=== PATIENT | female | born 1995 | race Caucasian/White ===

== ENCOUNTER 2018-11-20 14:17 | Emergency (ER) | payer MEDICAID ==
[~2018-11-20] VITALS: Ht 149.9 cm; Wt 97.5 kg
[2018-11-20 14:25] VITALS: BP 116/66
[2018-11-20] MEDS ORDERED: ACETAMINOPHEN 500 MG TABLET ONE (14:47)
--- NOTE | 2018-11-20 14:53 | NUR ---
PT RESTING ON GURNEY, CALL LIGHT IN REACH. MEDICATED FOR PAIN. ALL CONCERNS ADRESSED.
[2018-11-20] MEDS ORDERED: ACETAMINOPHEN 500 MG TABLET PO ONE (15:00)
--- NOTE | 2018-11-20 15:23 | NUR ---
SW AT PT BEDSIDE
--- NOTE | 2018-11-20 15:59 | NUR ---
DIET TRAY GIVEN TO PT.
--- NOTE | 2018-11-20 16:18 | NUR ---
Patient/Caregiver given discharge instructions and they have confirmed that they understand the instructions. Patient ambulatory with steady gait. PT GIVEN TAXI VOUCHER FOR SAFE TRANSPORT HOME. PT LEFT WITH ALL PERSONAL BELONGINGS.
== END 2018-11-20 16:42 | disposition home or self-care (01) ==
LOC: ED 14:49
DX: S30.811A Abrasion of abdominal wall, initial encounter (principal); Y04.0XXA Assault by unarmed brawl or fight, initial encounter; Y93.89 Activity, other specified; Y92.009 Unspecified place in unspecified non-institutional (private) residence as the place of occurrence of the external cause; Y99.8 Other external cause status
CPT/HCPCS: 36415; 70450; 84703; 99284

== ENCOUNTER 2019-01-08 09:50 | Emergency (ER) | payer MEDICAID ==
[~2019-01-08] VITALS: Ht 149.9 cm; Wt 95.8 kg
--- NOTE | 2019-01-08 09:55 | NUR ---
NO ANSWER FROM TRIAGE
[2019-01-08] MEDS ORDERED: SODIUM CHLORIDE FLUSH 10ML SYR IVF ONE (10:30)
[2019-01-08] MEDS ORDERED: ONDANSETRON 2MG/ML, 2ML IVPush ONE (10:30)
[2019-01-08] MEDS ORDERED: MORPHINE SULFATE 4 MG/ML, 1ML IVPush PRN (10:30)
[2019-01-08 10:34] LABS: BASOPHILS # (AUTO) 0.03 x10^3/uL (0-0.1); BASOPHILS % (AUTO) 0 % (0-1); EOSINOPHILS # (AUTO) 0.07 x10^3/uL (0-0.4); EOSINOPHILS % (AUTO) 1 % (1-7); LYMPHOCYTES # (AUTO) 1.35 x10^3/uL (1-3.4); LYMPHOCYTES % (AUTO) 18 % (22-44); MD NO; MEAN CORPUSCULAR HEMOGLOBIN 30.2 pg (27.0-34.8); MEAN CORPUSCULAR HGB CONC 33.7 g/dL (32.4-35.8); MEAN CORPUSCULAR VOLUME 89.6 fL (80-100); MEAN PLATELET VOLUME 9.1 fL (7.4-10.4); MONOCYTES # (AUTO) 0.44 x10^3/uL (0.2-0.8); MONOCYTES % (AUTO) 6 % (2-9); NEUTROPHILS # (AUTO) 5.81 x10^3/uL (1.8-6.8); NEUTROPHILS % (AUTO) 75 % (42-75); PLATELET COUNT 216 x10^3/uL (130-400); RED BLOOD COUNT 4.72 x10^6/uL (3.82-5.3); RED CELL DISTRIBUTION WIDTH 13.3 % (9.6-15.2)
[2019-01-08 10:46] LABS: ALANINE AMINOTRANSFERASE 108 U/L (12-78); ALBUMIN 3.6 g/dL (3.4-5.0); ANION GAP 8 mmol/L (5-15); CALCIUM 8.5 mg/dL (8.5-10.1); CHLORIDE 108 mmol/L (98-107); CREATININE 0.72 mg/dL (0.55-1.02)
[2019-01-08 10:48] LABS: ALKALINE PHOSPHATASE 80 U/L (45-117); TOTAL PROTEIN 7.2 g/dL (6.4-8.2)
[2019-01-08] MEDS ORDERED: MORPHINE SULFATE 4 MG/ML, 1ML ONE (10:52)
[2019-01-08] MEDS ORDERED: ONDANSETRON 2MG/ML, 2ML ONE (10:52)
--- NOTE | 2019-01-08 11:06 | NUR ---
CT PENDING HCG
[2019-01-08 11:07] LABS: MICROSCOPIC AUTO
[2019-01-08 11:09] LABS: CULTURE INDICATED? YES
[2019-01-08] MEDS ORDERED: OMNIPAQUE 350 MG/ML, 100ML BOTTLE ONE (11:47)
[2019-01-08 13:25] VITALS: BP 98/47
== END 2019-01-08 14:02 | disposition home or self-care (01) ==
LOC: ED 10:53
DX: N83.292 Other ovarian cyst, left side (principal); F17.200 Nicotine dependence, unspecified, uncomplicated; J45.909 Unspecified asthma, uncomplicated
CPT/HCPCS: 36415; 74177; 80053; 81001; 81025; 83690; 85025; 87086; 96374; 96375; 99284; J2405; Q9967

== ENCOUNTER 2019-01-27 20:06 | Emergency (ER) | payer MEDICAID ==
[~2019-01-27] VITALS: Ht 152.4 cm; Wt 97.2 kg
[2019-01-27 20:08] VITALS: BP 112/67
--- NOTE | 2019-01-27 21:32 | NUR ---
pt given dc instructions and script, educated regarding rx for flonase and tessalon perles. pt a&o, resps even and unlabored, nadn. pt amb to dc desk with steady gait, accompanied by friend.
== END 2019-01-27 21:25 | disposition home or self-care (01) ==
LOC: ED 20:58
DX: J02.9 Acute pharyngitis, unspecified (principal); F17.210 Nicotine dependence, cigarettes, uncomplicated; J45.909 Unspecified asthma, uncomplicated
CPT/HCPCS: 87081; 87880; 99283

== ENCOUNTER 2019-04-29 10:23 | Emergency (ER) | payer MEDICAID ==
[~2019-04-29] VITALS: Ht 152.4 cm; Wt 94.8 kg
[2019-04-29 12:52] VITALS: BP 113/63
== END 2019-04-29 12:56 | disposition home or self-care (01) ==
LOC: ED 12:50
DX: N83.291 Other ovarian cyst, right side (principal); N93.8 Other specified abnormal uterine and vaginal bleeding; J45.909 Unspecified asthma, uncomplicated
CPT/HCPCS: 36415; 76830; 80053; 81001; 84703; 85025; 99284

== ENCOUNTER 2019-09-06 12:17 | Emergency (ER) | payer MEDICAID ==
[~2019-09-06] VITALS: Ht 152.4 cm; Wt 89.9 kg
[2019-09-06 12:30] VITALS: BP 134/77
[2019-09-06] MEDS ORDERED: SODIUM CHLORIDE FLUSH 10ML SYR IVF ONE (13:00)
[2019-09-06 13:10] LABS: MEAN CORPUSCULAR HEMOGLOBIN 19.4 pg (27.0-34.8); MEAN CORPUSCULAR VOLUME 64.8 fL (80-100); MEAN PLATELET VOLUME 8.1 fL (7.4-10.4); PLATELET COUNT 361 x10^3/uL (130-400); RED BLOOD COUNT 4.13 x10^6/uL (3.82-5.3); RED CELL DISTRIBUTION WIDTH 20.8 % (9.6-15.2)
[2019-09-06 13:19] LABS: ALBUMIN 3.7 g/dL (3.4-5.0); ANION GAP 7 mmol/L (5-15); CALCIUM 8.6 mg/dL (8.5-10.1); CHLORIDE 107 mmol/L (98-107)
[2019-09-06 13:25] LABS: ALANINE AMINOTRANSFERASE 49 U/L (12-78); ALKALINE PHOSPHATASE 79 U/L (45-117); BILIRUBIN,TOTAL 0.6 mg/dL (0.2-1.0); CREATININE 0.74 mg/dL (0.55-1.02); TOTAL PROTEIN 8.1 g/dL (6.4-8.2)
[2019-09-06 13:28] LABS: BASOPHILS # (AUTO) 0.02 x10^3/uL (0-0.1); BASOPHILS % (AUTO) 0 % (0-1); EOSINOPHILS # (AUTO) 0.12 x10^3/uL (0-0.4); EOSINOPHILS % (AUTO) 2 % (1-7); LYMPHOCYTES # (AUTO) 1.96 x10^3/uL (1-3.4); LYMPHOCYTES % (AUTO) 35 % (22-44); MD MORPH REVIEW ONLY; MONOCYTES # (AUTO) 0.36 x10^3/uL (0.2-0.8); MONOCYTES % (AUTO) 6 % (2-9); NEUTROPHILS # (AUTO) 3.16 x10^3/uL (1.8-6.8); NEUTROPHILS % (AUTO) 56 % (42-75)
[2019-09-06 13:30] LABS: ANISOCYTOSIS 2+; HYPOCHROMIA 1+; MICROCYTOSIS 2+
[2019-09-06 13:33] LABS: OVALOCYTES 1+; POLYCHROMASIA 1+; STOMATOCYTES 1+; TEAR DROPS 1+
--- NOTE | 2019-09-06 13:33 | NUR ---
Pt in US at this time, pt to be brought back to 38 when scan complete
[2019-09-06 13:39] LABS: <PLATELET ESTIMATE> ADEQUATE; <PLT MORPHOLOGY> NORMAL PLT MORPH
--- NOTE | 2019-09-06 14:00 | NUR ---
PT WITH COMPLAINTS OF PASSING LARGE CLOTS SINCE 08/30. NO VAGINAL DISCHARGE NOTED. NO URINARY COMPLAINTS. 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
[2019-09-06] MEDS ORDERED: MEDROXYPROGESTERONE ACETATE 150 MG/ML IM ONE (14:30)
--- NOTE | 2019-09-06 14:48 | NUR ---
PT MEDICATED PER NICKI PT TO GET DRESSED, AWAITING DC PAPERWORK Addendum: 09/06/19 at 1503 by [email or web address] OK PER , NO NEED FOR STRAIGHT CATH AT THIS TIME.
== END 2019-09-06 15:37 | disposition home or self-care (01) ==
LOC: ED 15:31
DX: N93.8 Other specified abnormal uterine and vaginal bleeding (principal); D62 Acute posthemorrhagic anemia
CPT/HCPCS: 36415; 76830; 80053; 84702; 85025; 86850; 86900; 96372; 99284; J1050

== ENCOUNTER 2019-10-21 06:53 | Emergency (ER) | payer MEDICAID ==
[~2019-10-21] VITALS: Ht 152.4 cm; Wt 75.0 kg
[2019-10-21] MEDS ORDERED: ONDANSETRON 2MG/ML, 2ML IVPush ONE ×2 (07:30→09:00)
[2019-10-21] MEDS ORDERED: SODIUM CHLORIDE FLUSH 10ML SYR IVF ONE (07:30)
[2019-10-21] MEDS ORDERED: FAMOTIDINE 20 MG/2 ML IV ONE (07:30)
[2019-10-21] MEDS ORDERED: FAMOTIDINE 20 MG/2 ML ONE (07:34)
[2019-10-21] MEDS ORDERED: MORPHINE SULFATE 4 MG/ML, 1ML ONE ×3 (07:34→08:49)
[2019-10-21] MEDS ORDERED: ONDANSETRON 2MG/ML, 2ML ONE ×2 (07:34→08:49)
[2019-10-21] MEDS: MORPHINE SULFATE 4 MG/ML, 1ML IVPush PRN ×2 (07:40→08:08)
[2019-10-21 07:53] LABS: ALANINE AMINOTRANSFERASE 39 U/L (12-78); ALBUMIN 3.8 g/dL (3.4-5.0); ANION GAP 11 mmol/L (5-15); CALCIUM 8.9 mg/dL (8.5-10.1); CHLORIDE 107 mmol/L (98-107); CREATININE 0.91 mg/dL (0.55-1.02)
[2019-10-21 07:58] LABS: ALKALINE PHOSPHATASE 97 U/L (45-117); BILIRUBIN,TOTAL 0.3 mg/dL (0.2-1.0); TOTAL PROTEIN 8.8 g/dL (6.4-8.2)
[2019-10-21 08:10] LABS: MEAN CORPUSCULAR HEMOGLOBIN 20.1 pg (27.0-34.8); MEAN CORPUSCULAR HGB CONC 30.3 g/dL (32.4-35.8); MEAN CORPUSCULAR VOLUME 66.5 fL (80-100); MEAN PLATELET VOLUME 8.8 fL (7.4-10.4); PLATELET COUNT 402 x10^3/uL (130-400); RED CELL DISTRIBUTION WIDTH 23.4 % (9.6-15.2)
[2019-10-21 08:16] LABS: HEMOGRAM NOTE RECHECKED
[2019-10-21 08:20] LABS: MD YES
--- NOTE | 2019-10-21 08:21 | NUR ---
PIV STARTED AND PATIENT MEDICATED FOR PAIN AND NAUSEA AND PATIENT TO ULTRASOUND. AFTER PATIENT RETURNED FROM ULTRASOUND, A SECOND DOSE OF MORPHINE WAS GIVEN HER PAIN WAS STILL 7/10. PT ON CONTINUOUS SPO2 MONITOR FOR SAFETY. STRIGHT CATH PERFORMED BY ANOTHER (FEMALE) RN.
[2019-10-21 08:23] LABS: ANISOCYTOSIS 2+; BAND#(MANUAL) 0.13 x10^3/uL; BANDS%(MANUAL) 1 % (0-7); EOS#(MANUAL) 0.27 x10^3/uL (0.0-0.4); EOS% (MANUAL) 2 % (1-7); LYMPH#(MANUAL) 2.66 x10^3/uL (1-3.4); LYMPHS% (MANUAL) 20 % (22-44); MONOS% (MANUAL) 3 % (2-9); SEG#(MANUAL) 9.84 x10^3/uL (1.8-6.8); SEGS% (MANUAL) 74 % (42-75)
[2019-10-21 08:24] LABS: HYPOCHROMIA 2+; MICROCYTOSIS 2+; OVALOCYTES 1+; TEAR DROPS 1+
[2019-10-21 08:25] LABS: <PLATELET ESTIMATE> ADEQUATE; <PLT MORPHOLOGY> NORMAL PLT MORPH
--- NOTE | 2019-10-21 08:35 | NUR ---
NOTIFIED DR. GOOD THAT URINE WAS TOO LITTLE QUANTITY TO TEST. IV NS BOLUS ORDERED AND STARTED.
[2019-10-21] MEDS ORDERED: MORPHINE SULFATE 4 MG/ML, 1ML IVPush PRN (09:00)
[2019-10-21] MEDS ORDERED: SODIUM CHLORIDE 0.9% 1,000ML IVBOLUS ONE (09:00)
[2019-10-21] MEDS ORDERED: OMNIPAQUE 350 MG/ML, 100ML BOTTLE ONE (09:14)
[2019-10-21] MEDS ORDERED: FERR-46 PO (09:49)
--- NOTE | 2019-10-21 09:56 | NUR ---
VS UPDATED AND WNL. REMINDED PATIENT OF THE NEED FOR URINE. PT TO TRY TO VOID SOON.
[2019-10-21 10:50] LABS: MICROSCOPIC AUTO
[2019-10-21 10:54] LABS: CULTURE INDICATED? NO
--- NOTE | 2019-10-21 11:00 | NUR ---
BREAK RN: JHAR RPT REC'D FROM [facility]. VERIFIED WITH DR GOOD, PT OK TO HAVE ICE CHIPS. ICE CHIPS PROVIDED
--- NOTE | 2019-10-21 11:20 | NUR ---
PT WITH CRAMPING AND VAGINAL BLEEDING, EXPELED WHAT APPEARS TO BE POC. DR. GOOD TO BEDISDE AND AGREES. DISCUSSED WITH PATIENT THAT HER ABD PAIN EARLIER WAS MORE THAN LIKELY RELATED TO THE REMAINING POC BEING EVACUATED FOR THE UTERINE WALL. PT WAS NOT AWARE THAT SHE HAD BEEN . 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 SPECIMEN COLLECTED AND PLACED IN STERILE CONTAINER WITH NS. LABELED.
--- NOTE | 2019-10-21 11:45 | NUR ---
DEMISE INFORMATION AND CONSENTS REVIEWED WITH PT. WAVE OF LIFE CANDLE AND PARENTAL BEREAVEMENT INFORMATION SHEET GIVEN TO PATIENT. PATIENT OPTS FOR PICKING UP THE POC WHEN PATHOLOGY HAS BEEN COMPLETED. CONSENT SIGNED, PT GIVEN CONTACT INFO FOR PATHOLOGY.
[2019-10-21 12:01] VITALS: BP 124/82
--- NOTE | 2019-10-21 12:09 | NUR ---
Patient/Caregiver given discharge instructions and they have confirmed that they understand the instructions. Patient ambulatory with steady gait.
--- NOTE | 2019-10-21 13:34 | NUR ---
WALKED SPECIMEN TO PATHOLOGY DEPT. AND LEFT WITH PAPERWORK. CALLED PATIENT AT [phone] AND NOTIFIED HER TO CALL NEXT WEEK TO OBTAIN THE FETUS. PATIENT STATES SHE HAS THE NUMBER. ORDER PLACED FOR FOLLOW-UP SPIRITUAL CARE CONSULT AND SLIP SENT TO [facility].
== END 2019-10-21 12:05 | disposition home or self-care (01) ==
LOC: ED 08:41
DX: N83.291 Other ovarian cyst, right side (principal); R10.32 Left lower quadrant pain; R10.31 Right lower quadrant pain; R11.2 Nausea with vomiting, unspecified; F17.210 Nicotine dependence, cigarettes, uncomplicated
CPT/HCPCS: 36415; 74177; 76830; 80053; 81001; 83690; 84703; 85025; 88305; 96361; 96374; 96375; 96376; 99284; J2270; J2405; J3490; J7030; Q9967

== ENCOUNTER 2019-11-11 22:59 | Emergency (ER) | payer MEDICAID ==
[~2019-11-11] VITALS: Ht 152.4 cm; Wt 88.5 kg
[~2019-11-11 22:59] MED LIST: FERR-46 PO
--- NOTE | 2019-11-12 01:18 | NUR ---
THIS IS A 24Y F THAT COMES IN FOR RIGHT BREAST PAIN, A FEW DAYS AGO SHE HAD SOME CLEAR/ WHITE DISCHARGE FROM THE BREAST. HOWEVER TODAY THERE IS NO DISCHARGE. PT REPORTS A RECENT MC LAST MONTH. PT WAS SEEN HERE FOR THIS. PT CONNECTED TO MONITORING, SUE WU. CALL LIGHT IN J LUIS ROSADO AT BEDSIDE TO ASSESS PT
[2019-11-12 01:20] VITALS: BP 114/57
[2019-11-12 01:32] LABS: MEAN CORPUSCULAR HEMOGLOBIN 20.2 pg (27.0-34.8); MEAN CORPUSCULAR HGB CONC 31.3 g/dL (32.4-35.8); MEAN CORPUSCULAR VOLUME 64.4 fL (80-100); MEAN PLATELET VOLUME 8.7 fL (7.4-10.4); PLATELET COUNT 309 x10^3/uL (130-400); RED BLOOD COUNT 4.98 x10^6/uL (3.82-5.3); RED CELL DISTRIBUTION WIDTH 20.8 % (9.6-15.2)
--- NOTE | 2019-11-12 01:34 | NUR ---
PT BACK FROM IMAGING AT THIS TIME
[2019-11-12 01:41] LABS: ALBUMIN 3.6 g/dL (3.4-5.0); ANION GAP 8 mmol/L (5-15); CALCIUM 8.4 mg/dL (8.5-10.1); CHLORIDE 110 mmol/L (98-107); CREATININE 0.67 mg/dL (0.55-1.02)
[2019-11-12 01:52] LABS: MD YES
[2019-11-12 01:58] LABS: ANISOCYTOSIS 1+; BASOS#(MANUAL) 0.07 x10^3/uL (0-0.1); BASOS% (MANUAL) 1 % (0-1); LYMPH#(MANUAL) 1.38 x10^3/uL (1-3.4); LYMPHS% (MANUAL) 20 % (22-44); MONOS#(MANUAL) 0.48 x10^3/uL (0.3-2.7); MONOS% (MANUAL) 7 % (2-9); REACTIVE LYMPHS # (MANUAL) 0.48 x10^3/uL (0-0); REACTIVE LYMPHS % (MANUAL) 7 % (0-0); SEG#(MANUAL) 4.49 x10^3/uL (1.8-6.8); SEGS% (MANUAL) 65 % (42-75)
[2019-11-12 01:59] LABS: HYPOCHROMIA 1+; MICROCYTOSIS 2+; OVALOCYTES 1+; POLYCHROMASIA 1+; TARGET CELLS 1+; TEAR DROPS 1+
[2019-11-12 02:00] LABS: <PLATELET ESTIMATE> ADEQUATE; LARGE PLATELETS 1+; SMUDGE CELLS 1+
== END 2019-11-12 03:47 ==
LOC: ED 11-12 03:13
DX: R07.89 Other chest pain (principal); N64.4 Mastodynia; J45.909 Unspecified asthma, uncomplicated
CPT/HCPCS: 36415; 76642; 80048; 82040; 85025; 99284